=== PATIENT | male | born 1945 | race Caucasian/White ===

== ENCOUNTER 2021-01-10 19:19 | Observation (INO) ==
[2021-01-10 20:20] LABS: Basophils % 0.2 %; Eosinophils # 0.2 K/mcL (0.0-0.6); Eosinophils % 0.9 %; Hematocrit 44.6 % (37.5-50.1); Hemoglobin 14.4 g/dL (12.9-16.9); Immature Granulocytes % 0.4 % (0-4); Lymphocytes # 1.3 K/mcL (0.6-4.6); Lymphocytes % 7.4 %; Mean Corpuscular HGB Conc 32.3 g/dL (31.6-35.5); Mean Corpuscular Hemoglobin 28.6 pg (28.0-33.3); Mean Corpuscular Volume 88.7 fL (83.0-100.0); Mean Platelet Volume 10.7 fL (9.4-12.4); Monocytes # 1.2 K/mcL (0.0-1.3); Monocytes % 6.8 %; Neutrophils # 14.6 K/mcL (1.6-8.9); Platelet Count 180 K/mcL (140-400); Red Blood Count 5.03 M/mcL (4.19-5.50); Red Cell Distribution Width 14.9 % (11.5-14.5); Segmented Neutrophils % 84.3 %; White Blood Count 17.3 K/mcL (4.3-11.1)
[2021-01-10] MEDS ORDERED: Ondansetron 4 MG/2 ML VIAL IVP STA (20:28)
[2021-01-10 20:30] LABS: INR 2.8; Prothrombin Time 31.7 Seconds (9.4-12.1)
[2021-01-10 20:33] LABS: Activated Partial Thrombo Time 32.9 Seconds (26.0-36.0)
[2021-01-10 20:39] LABS: BUN/Creatinine Ratio 16 (6-26); Blood Urea Nitrogen 23 mg/dL (8-23); Calcium 9.2 mg/dL (8.6-10.3); Carbon Dioxide 29 mEq/L (23-29); Chloride 101 mEq/L (98-107); Glucose 177 mg/dL (70-105); Osmolality,Calculated 298 (280-300); Potassium 3.6 mEq/L (3.5-5.1); Sodium 140 mEq/L (136-145); Troponin I < 0.03 ng/mL (< 0.04); eGFR For African Americans > 60 (> 60); eGFR For Non-African Americans 50 (> 60)
[2021-01-10] MEDS ORDERED: 0.9 % Sodium Chloride 1,000 ML IVC ONE (21:05)
[2021-01-10 21:27] LABS: Alanine Aminotransferase 17 Units/L (7-52); Albumin 4.1 g/dL (3.5-5.7); Albumin/Globulin Ratio 1.4 (1.1-2.2); Alkaline Phosphatase 79 Units/L (34-104); Aspartate Amino Transferase 17 Units/L (13-39); Bilirubin,Indirect 0.5 mg/dL (0.0-1.0); Bilirubin,Total 0.5 mg/dL (0.3-1.0); Globulin 2.9 g/dL (2.4-3.5); Lipase 43 Units/L (11-82)
[2021-01-10] MEDS ORDERED: MetroNIDAZOLE 500 MG/100 ML 500 MG/100 ML BAG IVPB ONE (22:33)
[2021-01-11] MEDS ORDERED: Ondansetron 4 MG/2 ML VIAL IVP PRN (00:06)
[2021-01-11] MEDS ORDERED: Naloxone 0.4 MG/ML INJ IVP PRN (00:06)
[2021-01-11] MEDS ORDERED: Melatonin 3 MG TABLET PO PRN (00:06)
[2021-01-11] MEDS ORDERED: Acetaminophen 325 MG TABLET PO PRN (00:06)
[2021-01-11] MEDS ORDERED: *HR* Promethazine 25 MG/ML VIAL IM PRN (00:06)
[2021-01-11] MEDS ORDERED: Dextrose Gel 15 GM/37.5 ML TUBE PO PRN ×2 (00:09)
[2021-01-11] MEDS ORDERED: *HR* Dextrose 50 % in Water (Vial) 50 ML VIAL IVP PRN (00:09)
[2021-01-11] MEDS ORDERED: D5% in Water 1,000 ML IVC PRN (00:09)
[2021-01-11 00:43] LABS: Bilirubin,Urine Negative (Negative); Blood,Urine Negative (Negative); Clarity,Urine Clear (Clear); Color,Urine Yellow (Yellow); Glucose,Urine (UA) Normal (Normal); Ketones,Urine Negative (Negative); Leukocyte Esterase,Urine Negative (Negative); Nitrite,Urine Negative (Negative); PH,Urine 5.5 pH Units (5.0-8.0); Protein,Urine Trace mg/dL (Neg-Trace); Urobilinogen,Urine Normal (Normal)
[2021-01-11] MEDS: Ringers Solution, Lactated 1,000 ML IVC SCH ×4 (00:46→22:44)
[2021-01-11 00:52] LABS: Protein/Creatinine Ratio,Urine 0.11 mg/mg (0.00-0.20); Sodium, Urine 70.2 mEq/L
[2021-01-11] MEDS ORDERED: Perflutren Lipid Microsphere 1.3 ML in 0.9 % Sodium Chloride 8.7 ML IVP PRN (04:03)
[2021-01-11] MEDS: Insulin LISPRO 300 UNITS/3 ML VIAL SUBQ SCH ×3 (05:32→17:25)
[2021-01-11 06:37] LABS: Basophils % 0.2 %; Eosinophils # 0.2 K/mcL (0.0-0.6); Hematocrit 36.9 % (37.5-50.1); INR 3.1; Immature Granulocytes % 0.2 % (0-4); Lymphocytes % 18.6 %; Mean Corpuscular Hemoglobin 28.4 pg (28.0-33.3); Mean Corpuscular Volume 88.9 fL (83.0-100.0); Mean Platelet Volume 10.9 fL (9.4-12.4); Monocytes # 0.7 K/mcL (0.0-1.3); Monocytes % 8.8 %; Platelet Count 161 K/mcL (140-400); Prothrombin Time 34.7 Seconds (9.4-12.1); Red Blood Count 4.15 M/mcL (4.19-5.50); Red Cell Distribution Width 14.7 % (11.5-14.5); Segmented Neutrophils % 70.2 %
[2021-01-11 06:41] LABS: Hemoglobin 11.8 g/dL (12.9-16.9); Lymphocytes # 1.5 K/mcL (0.6-4.6); Neutrophils # 5.8 K/mcL (1.6-8.9); White Blood Count 8.3 K/mcL (4.3-11.1)
[2021-01-11 06:52] LABS: Alanine Aminotransferase 13 Units/L (7-52); Albumin 3.3 g/dL (3.5-5.7); Albumin/Globulin Ratio 1.5 (1.1-2.2); Alkaline Phosphatase 55 Units/L (34-104); Aspartate Amino Transferase 12 Units/L (13-39); BUN/Creatinine Ratio 16 (6-26); Bilirubin,Total 0.5 mg/dL (0.3-1.0); Blood Urea Nitrogen 21 mg/dL (8-23); Calcium 8.2 mg/dL (8.6-10.3); Carbon Dioxide 32 mEq/L (23-29); Chloride 106 mEq/L (98-107); Globulin 2.2 g/dL (2.4-3.5); Glucose 108 mg/dL (70-105); Magnesium 1.7 mg/dL (1.6-2.6); Osmolality,Calculated 298 (280-300); Potassium 3.8 mEq/L (3.5-5.1); Sodium 142 mEq/L (136-145); Total Protein 5.5 g/dL (6.4-8.9); eGFR For African Americans > 60 (> 60); eGFR For Non-African Americans 53 (> 60)
[2021-01-11] MEDS: MetroNIDAZOLE 500 MG/100 ML 500 MG/100 ML BAG IVPB SCH ×3 (07:40→23:46)
[2021-01-11] MEDS ORDERED: Piperacillin/Tazobactam 3.375 GM in 0.9 % Sodium Chloride Mini Bag 100 ML IVPB SCH (08:00)
[2021-01-11] MEDS: Gabapentin 300 MG CAPSULE PO SCH (17:25)
[2021-01-11] MEDS ORDERED: *HR* Warfarin 2.5 MG TABLET PO ONE (18:00)
[2021-01-11] MEDS ORDERED: Warfarin perPT PO PRN (18:00)
[2021-01-11] MEDS: Insulin DETEMIR 100 UNIT/ML X5UNITS SUBQ SCH (20:06)
[2021-01-12] MEDS: Insulin LISPRO 300 UNITS/3 ML VIAL SUBQ SCH ×4 (00:02→17:06)
[2021-01-12 06:32] LABS: Basophils % 0.5 %; Eosinophils # 0.3 K/mcL (0.0-0.6); Eosinophils % 4.5 %; Hematocrit 34.3 % (37.5-50.1); Hemoglobin 10.9 g/dL (12.9-16.9); Immature Granulocytes % 0.3 % (0-4); Lymphocytes # 1.5 K/mcL (0.6-4.6); Lymphocytes % 23.5 %; Mean Corpuscular HGB Conc 31.8 g/dL (31.6-35.5); Mean Corpuscular Hemoglobin 28.5 pg (28.0-33.3); Mean Corpuscular Volume 89.6 fL (83.0-100.0); Mean Platelet Volume 10.8 fL (9.4-12.4); Monocytes # 0.6 K/mcL (0.0-1.3); Neutrophils # 3.8 K/mcL (1.6-8.9); Platelet Count 133 K/mcL (140-400); Red Blood Count 3.83 M/mcL (4.19-5.50); Red Cell Distribution Width 14.6 % (11.5-14.5); Segmented Neutrophils % 61.2 %; White Blood Count 6.2 K/mcL (4.3-11.1)
[2021-01-12 06:44] LABS: INR 2.3; Prothrombin Time 26.5 Seconds (9.4-12.1)
[2021-01-12] MEDS: MetroNIDAZOLE 500 MG/100 ML 500 MG/100 ML BAG IVPB SCH ×2 (07:37→15:24)
[2021-01-12 07:48] LABS: % Iron Saturation 25 % (20-55); BUN/Creatinine Ratio 12 (6-26); Blood Urea Nitrogen 15 mg/dL (8-23); Calcium 8.3 mg/dL (8.6-10.3); Carbon Dioxide 31 mEq/L (23-29); Chloride 105 mEq/L (98-107); Glucose 101 mg/dL (70-105); Iron 71 mcg/dL (65-175); Magnesium 1.7 mg/dL (1.6-2.6); Osmolality,Calculated 295 (280-300); Phosphorous 3.4 mg/dL (2.7-4.5); Potassium 3.7 mEq/L (3.5-5.1); Sodium 142 mEq/L (136-145); Transferrin 206 mg/dL (203-362); eGFR For African Americans > 60 (> 60); eGFR For Non-African Americans 54 (> 60)
[2021-01-12 07:52] LABS: Folate 19.5 ng/mL (3.0-16.0)
[2021-01-12 07:55] LABS: Ferritin 37 ng/mL (20-250)
[2021-01-12] MEDS: Ringers Solution, Lactated 1,000 ML IVC SCH (15:28)
[2021-01-12] MEDS: Gabapentin 300 MG CAPSULE PO SCH (17:07)
[2021-01-12] MEDS ORDERED: *HR* Warfarin 5 MG TABLET PO ONE (18:00)
[2021-01-12] MEDS: Insulin DETEMIR 100 UNIT/ML X5UNITS SUBQ SCH (21:18)
[2021-01-13] MEDS: Insulin LISPRO 300 UNITS/3 ML VIAL SUBQ SCH ×2 (00:02→06:50)
[2021-01-13] MEDS: MetroNIDAZOLE 500 MG/100 ML 500 MG/100 ML BAG IVPB SCH ×2 (00:03→08:20)
[2021-01-13 02:27] LABS: INR 2.3; Prothrombin Time 26.4 Seconds (9.4-12.1)
[2021-01-13] MEDS ORDERED: Regadenoson 0.4 MG/5 ML SYRINGE IVP ONE (06:06)
[2021-01-13] MEDS: Ringers Solution, Lactated 1,000 ML IVC SCH (08:23)
[2021-01-13 10:00] VITALS: BP 162/67
== END 2021-01-13 10:50 | disposition home or self-care (01) ==
LOC: EMEROOARM 19:19 → 3BNU 19:19 → SUATTDRO 23:12 → 3BNU 23:44
PROVIDERS: ADMIT Student in an Organized Health Care Education/Training Program; ATTEND Internal Medicine

== ENCOUNTER 2022-01-03 11:21 | Inpatient (IN) ==
[2022-01-03] MEDS ORDERED: *HR* HYDROmorphone (PF) 1 MG/ML SYRINGE IM ONE (12:31)
[2022-01-03] MEDS ORDERED: *HR* HYDROmorphone (PF) 1 MG/ML SYRINGE IVP ONE (12:37)
[2022-01-03 12:59] LABS: Basophils # 0.1 K/mcL (0.0-0.2); Basophils % 0.9 %; Eosinophils # 0.1 K/mcL (0.0-0.6); Eosinophils % 1.6 %; Hematocrit 42.2 % (37.5-50.1); Hemoglobin 13.6 g/dL (12.9-16.9); Immature Granulocytes % 0.1 % (0-4); Lymphocytes # 1.8 K/mcL (0.6-4.6); Lymphocytes % 23.7 %; Mean Corpuscular HGB Conc 32.2 g/dL (31.6-35.5); Mean Corpuscular Hemoglobin 27.9 pg (28.0-33.3); Mean Corpuscular Volume 86.7 fL (83.0-100.0); Mean Platelet Volume 10.9 fL (9.4-12.4); Monocytes # 0.7 K/mcL (0.0-1.3); Monocytes % 9.2 %; Neutrophils # 4.7 K/mcL (1.6-8.9); Platelet Count 256 K/mcL (140-400); Red Blood Count 4.87 M/mcL (4.19-5.50); Red Cell Distribution Width 14.2 % (11.5-14.5); Segmented Neutrophils % 64.5 %; White Blood Count 7.4 K/mcL (4.3-11.1)
[2022-01-03 13:33] LABS: Albumin 4.4 g/dL (3.5-5.7); Albumin/Globulin Ratio 1.8 (1.1-2.2); Bilirubin,Direct 0.1 mg/dL (0.0-0.2); Bilirubin,Indirect 0.4 mg/dL (0.0-1.0); Bilirubin,Total 0.5 mg/dL (0.3-1.0); Calcium 9.8 mg/dL (8.6-10.3); Globulin 2.5 g/dL (2.4-3.5); Potassium 4.3 mEq/L (3.5-5.1); Total Protein 6.9 g/dL (6.4-8.9)
[2022-01-03 13:33] LABS: Bilirubin,Urine Negative (Negative); Blood,Urine Negative (Negative); Clarity,Urine Clear (Clear); Color,Urine Light-Yellow (Yellow); Glucose,Urine (UA) >=1000 mg/dL (Normal); Ketones,Urine 20 mg/dL (Negative); Leukocyte Esterase,Urine Negative (Negative); Mucus,Urine Few per lpf (None-Few); Nitrite,Urine Negative (Negative); PH,Urine 6.5 pH Units (5.0-8.0); Protein,Urine 30 mg/dL (Neg-Trace); RBC,Urine 0-3 per hpf (0-3); Urobilinogen,Urine Normal (Normal); WBC,Urine 0-3 per hpf (0-3)
[2022-01-03] MEDS ORDERED: 0.9 % Sodium Chloride 1,000 ML IVC ONE (13:47)
[2022-01-03] MEDS ORDERED: *HR* OxyCODONE Immed Rel 5 MG TABLET PO PRN (16:23)
[2022-01-03] MEDS ORDERED: Acetaminophen 325 MG TABLET PO PRN (16:23)
[2022-01-03] MEDS ORDERED: Naloxone 0.4 MG/ML INJ IVP PRN (19:54)
[2022-01-03] MEDS: Sulfamethoxazole/Trimeth DS 1 EACH TABLET PO SCH (21:29)
[2022-01-03 21:30] LABS: INR 4.7; Prothrombin Time 51.6 Seconds (9.4-12.1)
[2022-01-03] MEDS: Gabapentin 300 MG CAPSULE PO SCH (21:30)
[2022-01-03] MEDS: *HR* OxyCODONE Immed Rel 5 MG TABLET PO PRN (21:30)
[2022-01-04] MEDS: *HR* HYDROmorphone (PF) 1 MG/ML SYRINGE IVP PRN ×2 (02:14→15:56)
[2022-01-04 03:19] LABS: Prothrombin Time 48.4 Seconds (9.4-12.1)
[2022-01-04 03:20] LABS: INR 4.4
[2022-01-04] MEDS: lisinopriL 20 MG TABLET PO SCH (08:50)
[2022-01-04] MEDS: Lactobacillus 1 EACH CAP.SPRINK PO SCH (08:50)
[2022-01-04] MEDS: Metoprolol XL (24 HR) Succ 50 MG TAB.ER.24H PO SCH (08:50)
[2022-01-04] MEDS: Sulfamethoxazole/Trimeth DS 1 EACH TABLET PO SCH ×2 (08:50→20:36)
[2022-01-04] MEDS: *HR* OxyCODONE Immed Rel 5 MG TABLET PO PRN ×2 (09:38→18:00)
[2022-01-04] MEDS ORDERED: Gadolinium Contrast Agent (WT Based) IV PRN (14:50)
[2022-01-04] MEDS ORDERED: predniSONE 20 MG TABLET PO ONE (15:21)
[2022-01-04] MEDS ORDERED: Dextrose 4 GM Chewable Tablets PO PRN ×2 (15:43)
[2022-01-04] MEDS ORDERED: D5% in Water 1,000 ML IVC PRN (15:43)
[2022-01-04] MEDS ORDERED: *HR* Dextrose 50 % in Water (Syg) 50 ML SYRINGE IVP PRN (15:43)
[2022-01-04] MEDS ORDERED: GADOBUTROL 30 MMOL/30 ML VIAL IVP ONE (16:19)
[2022-01-04] MEDS ORDERED: Warfarin perPT PO PRN (18:00)
[2022-01-04] MEDS: Insulin LISPRO 300 UNITS/3 ML VIAL SUBQ SCH (18:15)
[2022-01-04] MEDS: Gabapentin 300 MG CAPSULE PO SCH (20:37)
[2022-01-04] MEDS ORDERED: Insulin LISPRO 300 UNITS/3 ML VIAL SUBQ SCH (21:00)
[2022-01-05] MEDS: *HR* OxyCODONE Immed Rel 5 MG TABLET PO PRN (06:25)
[2022-01-05 06:42] LABS: INR 3.4; Prothrombin Time 38.1 Seconds (9.4-12.1)
[2022-01-05 06:55] LABS: Calcium 9.2 mg/dL (8.6-10.3); Potassium 4.8 mEq/L (3.5-5.1)
[2022-01-05 07:05] VITALS: BP 148/79; PULSE 69; TEMP 97.9; O2SAT 90
[2022-01-05] MEDS: Insulin LISPRO 300 UNITS/3 ML VIAL SUBQ SCH ×2 (08:28→12:17)
[2022-01-05] MEDS: Sulfamethoxazole/Trimeth DS 1 EACH TABLET PO SCH (08:29)
[2022-01-05] MEDS: Metoprolol XL (24 HR) Succ 50 MG TAB.ER.24H PO SCH (08:31)
[2022-01-05] MEDS: Lactobacillus 1 EACH CAP.SPRINK PO SCH (08:33)
[2022-01-05] MEDS: lisinopriL 20 MG TABLET PO SCH (08:34)
[2022-01-05 09:24] LABS: Estimated Average Glucose 134 mg/dl; Hemoglobin A1C 6.3 %
== END 2022-01-05 12:33 | disposition home or self-care (01) | DRG 538 ==
LOC: EMEROOARM 11:21 → 3BNU 11:21 → SUATTDRO 14:37 → 3BNU 14:58
PROVIDERS: ADMIT Student in an Organized Health Care Education/Training Program; ATTEND Registered Nurse